=== PATIENT | male | born 1955 | race African-American/Black ===

== ENCOUNTER 2021-07-16 14:25 | Inpatient (IN) | payer OTHER ==
[2021-07-16] MEDS ORDERED: IBUPROFEN 400 MG TABLET (FP) PO PRN (16:00)
[2021-07-16] MEDS ORDERED: cloNIDine HCL 0.1 MG TABLET PO PRN (16:00)
[2021-07-16] MEDS ORDERED: MAG HYDROX/AL HYDROX/SIMETH 30 ML UNIT-DOSE CUP PO PRN (16:00)
[2021-07-16] MEDS ORDERED: METHOCARBAMOL 500 MG TABLET PO PRN (16:00)
[2021-07-16] MEDS ORDERED: BISMUTH SUBSALICYLATE 524 MG/30 ML PO PRN (16:00)
[2021-07-16] MEDS ORDERED: ONDANSETRON *ODT* 4 MG TABLET SL PRN (16:00)
[2021-07-16] MEDS ORDERED: NICOTINE 10 MG CARTRIDGE (INHALER) IH PRN (16:00)
[2021-07-16] MEDS ORDERED: MAGNESIUM CITRATE 300 ML BOTTLE PO PRN (16:00)
[2021-07-16] MEDS ORDERED: MAGNESIUM HYDROX 2400MG/30ML ORAL SUSPENSION 30 ML CUP PO PRN (16:00)
[2021-07-16] MEDS ORDERED: methaDONE HCL 10 MG TABLET (FOR DETOX USE ONLY) PO ONE (16:00)
[2021-07-16] MEDS ORDERED: ACETAMINOPHEN 325 MG TABLET (FP) PO PRN ×2 (16:00)
[2021-07-16] MEDS ORDERED: MENTHOL/PHENOL 1 EACH UD MM PRN (16:00)
[2021-07-16 19:03] VITALS: BMI 19.8
[2021-07-16] MEDS: hydrOXYzine PAMOATE 25 MG CAPSULE (FP) PO SCH ×2 (19:58→22:13)
[2021-07-16] MEDS ORDERED: MELATONIN 5 MG TABLETS PO SCH (22:00)
[2021-07-16] MEDS: THIAMINE HCL 100 MG TABLET (FP) PO SCH (22:13)
[2021-07-17] MEDS: hydrOXYzine PAMOATE 25 MG CAPSULE (FP) PO SCH ×2 (05:02→10:13)
[2021-07-17] MEDS ORDERED: methaDONE HCL 10 MG TABLET (FOR DETOX USE ONLY) ONE (09:04)
[2021-07-17] MEDS: PRENATAL VITAMINS W/ FOLIC ACID TABLET (FP) PO SCH (10:13)
[2021-07-17 10:32] LABS: HEMATOCRIT 30.4 % (35.4-49); HEMOGLOBIN 10.3 GM/dL (11.7-16.9); MCH 29.7 pg (25.7-33.7); MCHC 33.8 g/dl (32.0-35.9); MEAN CELL VOLUME 87.9 fl (80-96); MEAN PLT VOLUME 9.7 fl (7.5-11.1); PLATELET COUNT 200 10^3/uL (134-434); RBC 3.46 M/mm3 (4.00-5.60); RDW 13.5 % (11.9-15.9); WHITE BLOOD COUNT 7.1 K/mm3 (4.0-10.0)
[2021-07-17 10:37] LABS: CHLORIDE 103 mmol/L (98-107); SODIUM 133 mmol/L (136-145)
[2021-07-17 10:46] LABS: CALCIUM 8.9 mg/dL (8.5-10.1)
[2021-07-17 10:47] LABS: ALBUMIN 3.6 g/dl (3.4-5.0); ANION GAP 11 MMOL/L (8-16); BLOOD UREA NITROGEN 20.9 mg/dL (7-18); CO2 19 mmol/L (21-32)
[2021-07-17 10:50] LABS: CREATININE 1.4 mg/dL (0.55-1.3); SGOT/AST 13 U/L (15-37); SGPT/ALT 21 U/L (13-61)
[2021-07-17 10:52] LABS: BILIRUBIN,TOTAL 0.2 mg/dL (0.2-1); TOT PROT 6.8 g/dl (6.4-8.2)
[2021-07-17 10:53] LABS: ALK PHOS 90 U/L (45-117); GLUCOSE,RANDOM 426 mg/dL (74-106)
[2021-07-17] MEDS ORDERED: ALBUTEROL SO4 HFA INHALER IH PRN ×2 (11:29→12:00)
[2021-07-17] MEDS ORDERED: CLOPIDOGREL BISULFATE 75 MG TABLET (FP) PO SCH (11:45)
[2021-07-17] MEDS ORDERED: HYDROCHLOROTHIAZIDE 25 MG TABLET (FP) PO SCH (11:45)
[2021-07-17] MEDS ORDERED: levETIRAcetam 250 MG TABLET PO SCH (11:45)
[2021-07-17] MEDS ORDERED: PNEUMOC 13-VAL CONJ-DIP CRM/PF 0.5 ML DISP.SYRIN IM ONE (12:00)
[2021-07-17] MEDS: ENALAPRIL MALEATE 10 MG TABLET PO SCH (12:40)
[2021-07-17] MEDS: PHENYTOIN NA EXTENDED 100 MG CAPSULE (FP) PO SCH ×2 (12:40→22:45)
[2021-07-17] MEDS: DIVALPROEX SODIUM 500 MG TABLET E.C. PO SCH ×2 (12:40→22:45)
[2021-07-17] MEDS: ASPIRIN 81 MG CHEWABLE TABLETS PO SCH (12:40)
[2021-07-17] MEDS: HYDROCHLOROTHIAZIDE 25 MG TABLET (FP) PO SCH (12:40)
[2021-07-17] MEDS: levETIRAcetam 500 MG TABLET (FP) PO SCH (12:40)
[2021-07-17 17:15] LABS: EPI CELLS 1 /uL (0-25.1); HYALINE CASTS 0 /uL (0-3.1); URINE APPEARANCE CLEAR; URINE BACTERIA 3 /uL (0-1359); URINE BILIRUBIN NEGATIVE (NEGATIVE); URINE COLOR YELLOW; URINE GLUCOSE (UA) 3+ (NEGATIVE); URINE KETONE NEGATIVE (NEGATIVE); URINE LEUK ESTERASE NEGATIVE (NEGATIVE); URINE NITRITE NEGATIVE (NEGATIVE); URINE PROTEIN 2+ (NEGATIVE); URINE RBC 1 /uL (0-23.9); URINE UROBILINOGEN 0.2 mg/dL (0.2-1.0); URINE WBC 7 /uL (0-25.8)
[2021-07-17] MEDS ORDERED: INSULIN (NOVOLOG) ASPART 100 UNITS/ML 10ML VIAL ONE ×2 (17:20→22:44)
[2021-07-17] MEDS: INSULIN (NOVOLOG) ASPART 100 UNITS/ML 10ML VIAL SQ SCH ×2 (17:23→22:42)
[2021-07-17] MEDS ORDERED: ATORVASTATIN CA 10 MG TABLET (FP) PO SCH (22:00)
[2021-07-17] MEDS: ATORVASTATIN CA 80 MG TABLET (FP) PO SCH (22:45)
[2021-07-17] MEDS: THIAMINE HCL 100 MG TABLET (FP) PO SCH (22:45)
[2021-07-17] MEDS: BUDESONIDE/FORMETEROL FUMARATE 160/4.5 mcg INHALER IH SCH (22:45)
[2021-07-18] MEDS: PIOGLITAZONE HCL 15 MG TABLET PO SCH (06:14)
[2021-07-18] MEDS: INSULIN (NOVOLOG) ASPART 100 UNITS/ML 10ML VIAL SQ SCH ×4 (07:53→22:11)
[2021-07-18] MEDS ORDERED: FAMOTIDINE 20 MG TABLET PO PRN (09:32)
[2021-07-18] MEDS ORDERED: methaDONE HCL 10 MG TABLET (FOR DETOX USE ONLY) PO ONE (10:00)
[2021-07-18] MEDS: HYDROCHLOROTHIAZIDE 25 MG TABLET (FP) PO SCH (10:13)
[2021-07-18] MEDS: DIVALPROEX SODIUM 500 MG TABLET E.C. PO SCH ×2 (10:13→22:10)
[2021-07-18] MEDS: ASPIRIN 81 MG CHEWABLE TABLETS PO SCH (10:13)
[2021-07-18] MEDS: PHENYTOIN NA EXTENDED 100 MG CAPSULE (FP) PO SCH ×2 (10:13→22:10)
[2021-07-18] MEDS: levETIRAcetam 500 MG TABLET (FP) PO SCH (10:13)
[2021-07-18] MEDS: ENALAPRIL MALEATE 10 MG TABLET PO SCH (10:13)
[2021-07-18] MEDS: BUDESONIDE/FORMETEROL FUMARATE 160/4.5 mcg INHALER IH SCH ×2 (10:20→22:12)
[2021-07-18] MEDS: PRENATAL VITAMINS W/ FOLIC ACID TABLET (FP) PO SCH (10:21)
[2021-07-18 10:33] LABS: HEMOGLOBIN 9.9 GM/dL (11.7-16.9); MCH 29.3 pg (25.7-33.7); MCHC 32.9 g/dl (32.0-35.9); MEAN CELL VOLUME 89.1 fl (80-96); MEAN PLT VOLUME 10.2 fl (7.5-11.1); PLATELET COUNT 214 10^3/uL (134-434); RBC 3.37 M/mm3 (4.00-5.60); RDW 13.8 % (11.9-15.9); RETICULOCYTES 1.67 % (0.5-1.5); WHITE BLOOD COUNT 7.2 K/mm3 (4.0-10.0)
[2021-07-18 10:34] LABS: BLOOD UREA NITROGEN 28.2 mg/dL (7-18); CALCIUM 8.8 mg/dL (8.5-10.1)
[2021-07-18 10:37] LABS: CREATININE 1.3 mg/dL (0.55-1.3)
[2021-07-18] MEDS ORDERED: INSULIN (NOVOLOG) ASPART 100 UNITS/ML 10ML VIAL ONE ×2 (17:05→22:07)
[2021-07-18] MEDS: ATORVASTATIN CA 80 MG TABLET (FP) PO SCH (22:10)
[2021-07-18] MEDS: THIAMINE HCL 100 MG TABLET (FP) PO SCH (22:10)
[2021-07-18] MEDS: INSULIN (LEVEMIR) 100 UNITS/ML UNITS SQ SCH (22:11)
[2021-07-19] MEDS: PIOGLITAZONE HCL 15 MG TABLET PO SCH (06:24)
[2021-07-19] MEDS: INSULIN (NOVOLOG) ASPART 100 UNITS/ML 10ML VIAL SQ SCH ×4 (07:23→22:44)
[2021-07-19] MEDS ORDERED: methaDONE HCL 10 MG TABLET (FOR DETOX USE ONLY) ONE (08:59)
[2021-07-19] MEDS: PHENYTOIN NA EXTENDED 100 MG CAPSULE (FP) PO SCH ×2 (10:25→22:44)
[2021-07-19] MEDS: DIVALPROEX SODIUM 500 MG TABLET E.C. PO SCH ×2 (10:25→22:44)
[2021-07-19] MEDS: PRENATAL VITAMINS W/ FOLIC ACID TABLET (FP) PO SCH (10:25)
[2021-07-19] MEDS: ASPIRIN 81 MG CHEWABLE TABLETS PO SCH (10:25)
[2021-07-19] MEDS: ENALAPRIL MALEATE 10 MG TABLET PO SCH (10:25)
[2021-07-19] MEDS: levETIRAcetam 500 MG TABLET (FP) PO SCH (10:25)
[2021-07-19] MEDS: HYDROCHLOROTHIAZIDE 25 MG TABLET (FP) PO SCH (10:25)
[2021-07-19] MEDS: BUDESONIDE/FORMETEROL FUMARATE 160/4.5 mcg INHALER IH SCH ×2 (10:26→22:44)
[2021-07-19] MEDS ORDERED: INSULIN (NOVOLOG) ASPART 100 UNITS/ML 10ML VIAL ONE ×3 (11:51→22:59)
[2021-07-19] MEDS: FERROUS SO4 325 MG TABLET (FP) PO SCH (17:39)
[2021-07-19] MEDS: ATORVASTATIN CA 80 MG TABLET (FP) PO SCH (22:44)
[2021-07-19] MEDS: THIAMINE HCL 100 MG TABLET (FP) PO SCH (22:44)
[2021-07-19] MEDS: INSULIN (LEVEMIR) 100 UNITS/ML UNITS SQ SCH (22:45)
[2021-07-20] MEDS ORDERED: INSULIN (NOVOLOG) ASPART 100 UNITS/ML 10ML VIAL ONE ×4 (07:38→16:13)
[2021-07-20] MEDS: FERROUS SO4 325 MG TABLET (FP) PO SCH ×3 (08:04→17:45)
[2021-07-20] MEDS: PIOGLITAZONE HCL 15 MG TABLET PO SCH (08:04)
[2021-07-20] MEDS: INSULIN (NOVOLOG) ASPART 100 UNITS/ML 10ML VIAL SQ SCH ×4 (08:04→21:08)
[2021-07-20] MEDS ORDERED: methaDONE HCL 10 MG TABLET (FOR DETOX USE ONLY) PO ONE (10:00)
[2021-07-20] MEDS: PRENATAL VITAMINS W/ FOLIC ACID TABLET (FP) PO SCH (10:12)
[2021-07-20] MEDS: PHENYTOIN NA EXTENDED 100 MG CAPSULE (FP) PO SCH ×2 (10:13→21:14)
[2021-07-20] MEDS: DIVALPROEX SODIUM 500 MG TABLET E.C. PO SCH ×2 (10:13→21:14)
[2021-07-20] MEDS: HYDROCHLOROTHIAZIDE 25 MG TABLET (FP) PO SCH (10:13)
[2021-07-20] MEDS: ASPIRIN 81 MG CHEWABLE TABLETS PO SCH (10:13)
[2021-07-20] MEDS: ENALAPRIL MALEATE 10 MG TABLET PO SCH (10:13)
[2021-07-20] MEDS: levETIRAcetam 500 MG TABLET (FP) PO SCH (10:13)
[2021-07-20] MEDS: BUDESONIDE/FORMETEROL FUMARATE 160/4.5 mcg INHALER IH SCH ×2 (10:13→21:14)
[2021-07-20] MEDS: INSULIN (LEVEMIR) 100 UNITS/ML UNITS SQ SCH (21:08)
[2021-07-20] MEDS: THIAMINE HCL 100 MG TABLET (FP) PO SCH (21:14)
[2021-07-20] MEDS: ATORVASTATIN CA 80 MG TABLET (FP) PO SCH (21:14)
[2021-07-21] MEDS: PIOGLITAZONE HCL 15 MG TABLET PO SCH (06:15)
[2021-07-21] MEDS: FERROUS SO4 325 MG TABLET (FP) PO SCH (07:05)
[2021-07-21] MEDS: INSULIN (NOVOLOG) ASPART 100 UNITS/ML 10ML VIAL SQ SCH (08:12)
[2021-07-21 09:45] VITALS: BP 122/52; PULSE 77; TEMP 98.3
== END 2021-07-21 10:10 | disposition home or self-care (01) | DRG 897 ==
LOC: YASAS 14:25 → Y6N 17:43
PROVIDERS: ADMIT Allergy & Immunology; ATTEND Allergy & Immunology
PROC: HZ2ZZZZ Detoxification Services for Substance Abuse Treatment (ICD-10-PCS; principal; 2021-07-16)
DX: F11.23 Opioid dependence with withdrawal (principal); F19.282 Other psychoactive substance dependence with psychoactive substance-induced sleep disorder; F10.10 Alcohol abuse, uncomplicated; F14.10 Cocaine abuse, uncomplicated; F12.10 Cannabis abuse, uncomplicated; F31.9 Bipolar disorder, unspecified; F19.24 Other psychoactive substance dependence with psychoactive substance-induced mood disorder; D64.9 Anemia, unspecified; E11.65 Type 2 diabetes mellitus with hyperglycemia; Z79.4 Long term (current) use of insulin; I25.10 Atherosclerotic heart disease of native coronary artery without angina pectoris; I10 Essential (primary) hypertension; Z95.5 Presence of coronary angioplasty implant and graft; I25.2 Old myocardial infarction; G40.909 Epilepsy, unspecified, not intractable, without status epilepticus; J45.909 Unspecified asthma, uncomplicated; R79.89 Other specified abnormal findings of blood chemistry; Z89.511 Acquired absence of right leg below knee; Z89.422 Acquired absence of other left toe(s); Z99.89 Dependence on other enabling machines and devices
CPT/HCPCS: 36415; 80048; 80053; 81003; 82607; 82746; 82962; 83540; 83550; 85027; 85045; 86780; 90670; 93005; 93010; C9803; Q0162; U0003; U0005